=== PATIENT | female | born 1975 | race Caucasian/White ===

== ENCOUNTER 2018-08-12 20:47 | Emergency (ER) | payer MEDICAID, OTHER ==
[~2018-08-12] VITALS: Ht 160 cm; Wt 127.3 kg
[2018-08-12 21:45] VITALS: BP 138/95
[2018-08-12] MEDS ORDERED: KETOROLAC TROMETHAMINE 10 MG TABLET PO ONE (21:45)
[2018-08-12] MEDS ORDERED: MECLIZINE HCL 25 MG TABLET PO ONE (21:45)
== END 2018-08-12 22:09 | disposition home or self-care (01) ==
LOC: EMS 20:48
DX: S09.22XA Traumatic rupture of left ear drum, initial encounter (principal); H90.2 Conductive hearing loss, unspecified; R11.0 Nausea; F17.210 Nicotine dependence, cigarettes, uncomplicated; Z90.710 Acquired absence of both cervix and uterus; Z88.0 Allergy status to penicillin; W22.8XXA Striking against or struck by other objects, initial encounter; Y93.89 Activity, other specified; Y92.89 Other specified places as the place of occurrence of the external cause; Y99.8 Other external cause status
CPT/HCPCS: 99283